=== PATIENT | male | born 1945 | race Caucasian/White ===

== ENCOUNTER 2017-11-15 07:41 | Inpatient (IN) ==
[2017-11-15] MEDS ORDERED: Ketorolac 15 MG/ML VIAL IVP ONE (07:59)
[2017-11-15] MEDS ORDERED: CeFAZolin Syr 3,000MG/30 ML 3,000 MG/30 ML SYRINGE IVPB ONE (07:59)
--- NOTE | 2017-11-15 08:36 | History & Physical Report ---
Date of Encounter: 11/15/17 Time of Encounter: 08:36 24 Hour HP Update - Instructions Instructions: If the History and Physical is less than 30 days old and was completed prior to A.M. admission and or procedure and has NOT been updated on calendar day of procedure please complete this update prior to performing procedure. - Update Patient reports changes in Medical Condition: No Changes in examination, assessment, or condition: No Changes in Medication: No Preop tests/diagnostics Reviewed: Yes Surgery Remains Indicated: Yes Consent for Planned Operative Procedure(s) Verified: Yes
--- NOTE | 2017-11-15 08:36 | Anesthesia Evaluation PreOp ---
Date of Encounter: 11/15/17 Time of Encounter: 08:35 - Past History Planned Operation: R total reverse shoulder Cardiac History: HTN (Borderline HTN, on no therapy) Pulmonary History: Former smoker (Quit 5 years ago.), [employer] History: Denies Any Significant HX Other Medical History: Denies Any Significant HX, Other (obese) Anesthesia History: No Prior Anesthetic Complications (Has not had a GA in over 30 years, if ever.) Alcohol Use: rarely Drug use: none Medications and Allergies 3 Allergy/AdvReac Type Severity Reaction Status Date / Time No Known Allergies Allergy Verified 09/13/15 13:14 - Meds/Allergy Pre-op Review Medications Reviewed: Yes Allergies Reviewed: Yes Beta Blockers on Current Med List: No Anesthesia Results - Imaging EKG: report reviewed (sinus rhythm, occ. PACs) Anesthesia Exam Selected Entries 11/15/17 08:05 Temperature 98.1 F Pulse Rate 79 Respiratory Rate 18 Blood Pressure 167/96 O2 Sat by Pulse Oximetry 97 Weight: 130 kg. BMI 35 NPO (# of Hours): over 8 hours - HEENT Pupil (Motor): Pupils equal Mallampati: II Teeth: Normal, Missing Denture Type: Upper: Partial Oral Opening: Greater than 3 - Cardiac Rhythm: Regular Murmur: None - Pulmonary Breath Sounds: bilateral Clear Respiratory Effort: Symmetrical Anesthesia Assess/Plan ASA Score: 2 Modified [place] Scale for Level of Consciousness: Cooperative, oriented, and tranquil Anesthetic Plan: General Monitoring Plan: Standard Monitors Recovery Plan: PACU (Discussed GA and nerve block and associated risks. Agreed to proceed.)
[2017-11-15] MEDS ORDERED: ROPIVACAINE HCL/PF 0.5% 30 ML VIAL ONE (08:57)
[2017-11-15] MEDS: Ringers Solution, Lactated 1,000 ML IVC SCH ×2 (09:12→11:39)
--- NOTE | 2017-11-15 09:44 | Anesthesia Procedures ---
Date of Encounter: 11/15/17 Time of Encounter: 09:42 Procedures: Anesthesia - Nerve Block Procedure Date: 11/15/17 Time: 09:42 Allergies/Adv Reactions: [email or web address] Pre-op Diagnosis: Rt shoulder arthritis Surgical Procedure: Rt total shoulder Checklist: Correct Patient Identifier Correct side: Right Blood Thinner: No Monitor Applied: EKG, BP, Pulse Oximetry Supplemental Oxygen via Nasal Cannula (L/min): 3 Sedation: Versed (mg): 2 Sedation: Fentanyl (mcg): 100 Indication: Post Op Analgesia Pre-op Neuro Deficits: No Block Type: Supraclavicular Catheter placed: No Sterile Technique: Yes Ultrasound used: Yes Anatomy identified: Yes Visual spread of Local: Yes Neuro Stimulation: Yes Nerve Stimulator Range: 0.2 - 0.4 mA Blood on Needle Aspiration: No Smooth Injection of Local: Yes Pain with Injection of Local: No Prep: Chlorhexadine Needle: 22 x 50 mm Stimuplex Local: Ropivacaine (0.2) Volume (cc): 30 Number of Attempts: 1 Complications: None/effective block Vitals: Vital Signs/O2 Sat, Most Current Temp Pulse Resp BP Pulse Ox 98.1 F 67 16 183/99 97 11/15/17 08:05 11/15/17 09:32 11/15/17 09:32 11/15/17 09:32 11/15/17 09:32 Comments: aseptic tech, tolerated well, effective
[2017-11-15] MEDS ORDERED: EPHEDrine 50 MG/ML VIAL ONE (10:55)
[2017-11-15] MEDS ORDERED: *HR* Propofol 200 MG/20 ML VIAL IVP ONE ×2 (10:55→12:36)
[2017-11-15] MEDS ORDERED: *HR* FentaNYL (PF) 100 MCG/2 ML VIAL ONE ×2 (10:55)
[2017-11-15] MEDS ORDERED: Lidocaine -MPF 2% 2 ML VIAL ONE (10:55)
[2017-11-15] MEDS ORDERED: Lidocaine -MPF 4% 5 ML AMPUL ONE (10:55)
[2017-11-15] MEDS ORDERED: *HR* Midazolam HCl 2 MG/2 ML VIAL ONE (10:55)
[2017-11-15] MEDS ORDERED: *HR* Succinylcholine 200 MG/10 ML VIAL IVP ONE (10:55)
[2017-11-15] MEDS ORDERED: Ondansetron 4 MG/2 ML VIAL ONE (10:55)
[2017-11-15] MEDS ORDERED: *HR* Rocuronium Bromide 50 MG/5 ML VIAL ONE (10:55)
[2017-11-15] MEDS ORDERED: Dexamethasone 4 MG/ML VIAL ONE ×2 (10:55→12:03)
[2017-11-15] MEDS ORDERED: *HR* Labetalol 20 MG/4 ML SYRINGE IVP PRN (11:02)
[2017-11-15] MEDS ORDERED: *HR* Promethazine 25 MG/ML VIAL IVP PRN (11:02)
[2017-11-15] MEDS ORDERED: Ondansetron 4 MG/2 ML VIAL IVP ONE (11:02)
[2017-11-15] MEDS ORDERED: *HR* HYDROmorphone (PF) 1 MG/ML SYRINGE IVP PRN (11:02)
[2017-11-15] MEDS ORDERED: Neostigmine Methylsulfate 3 MG/3 ML SYRINGE ONE (11:44)
[2017-11-15] MEDS ORDERED: Tranexamic Acid 1,000 MG/10 ML VIAL ONE (12:02)
--- NOTE | 2017-11-15 14:11 | Anesthesia Evaluation Post Op ---
Date of Encounter: 11/15/17 Time of Encounter: 14:00 - Vital Signs Vital Signs: Vital Signs/O2 Sat/Glucose, Most Current Temp Pulse Resp BP Pulse Ox 11/15/17 13:54 98 F 68 14 136/91 97 11/15/17 13:44 98 F 75 14 139/83 96 11/15/17 13:34 82 14 139/82 97 11/15/17 13:24 80 16 155/87 96 11/15/17 13:14 98 F 81 14 148/88 95 11/15/17 13:04 84 16 155/88 93 11/15/17 12:54 86 16 149/98 94 11/15/17 12:44 97.2 F L 92 18 134/82 95 - Lungs Lungs: Clear Ascult./Percussion - Airway Airway: Non-obstructed - Cardiovascular Regular Rate - Mental Status Mental Status: Alert & Oriented, Answers Appropriately - Pain Pain Scale: 0 - Nausea Vomiting Nausea Vomiting: Not Present - Hydration Hydration: Tolerates oral liquids - Discharge PostOp Status: Transfer Patient to floor
[2017-11-15] MEDS ORDERED: Sennosides 8.6 MG TABLET PO PRN (14:15)
[2017-11-15] MEDS ORDERED: *HR* Morphine 2 MG/ML SYRINGE IVP PRN (14:15)
[2017-11-15] MEDS ORDERED: *HR* OxyCODONE Immed Rel 5 MG TABLET PO PRN (14:15)
[2017-11-15] MEDS ORDERED: *HR* HYDROcodone/Acet 5/325 mg TABLET PO PRN (14:15)
[2017-11-15] MEDS ORDERED: Acetaminophen 325 MG TABLET PO PRN (14:15)
[2017-11-15] MEDS ORDERED: Ondansetron 4 MG/2 ML VIAL IVP PRN (14:15)
[2017-11-15] MEDS ORDERED: MOM Conc 10 ML UD.LIQ PO PRN (14:15)
[2017-11-15] MEDS ORDERED: Ketorolac 15 MG/ML VIAL IVP PRN (14:15)
[2017-11-15] MEDS ORDERED: Temazepam 15 MG CAPSULE PO PRN (14:15)
[2017-11-15] MEDS ORDERED: Naloxone 0.4 MG/ML INJ IVP PRN (14:15)
[2017-11-15] MEDS ORDERED: Ringers Solution, Lactated 1,000 ML IVC SCH (14:15)
--- NOTE | 2017-11-15 15:36 | Discharge Summary ---
Outpatient Proc Discharge Plan - Plan Home Medications: Ascorbate Calcium [Vitamin C] 500 mg PO DAILY 11/15/17 [History] Iron Bis-Gly/FA/C/B12/Ca/Succ [Iron 17/05 Tablet] 1 tab PO DAILY 11/15/17 [ History] Secukinumab [Cosentyx Pen] 300 mg SQ QMONTH 11/15/17 [History]
--- NOTE | 2017-11-15 15:38 | Orthopedic Operative Note ---
Date of procedure: 11/15/17 Pre-op diagnosis: R cuff tear arthropathy Post-op diagnosis: same Procedure: 1. Right reverse total shoulder arthroplasty 2. Right open biceps tenodesis Indications: This is a 71-year-old male who has a several month history of right shoulder pain with arthritis and cuff tear arthropathy confirmed on radiographs. The patient has been unable to actively elevate his arm above approximately 50 degrees for months. The patient has failed conservative treatment including anti-inflammatories therapy and therapy. The patient has elected for a right reverse shoulder replacement. The risks and benefits of the procedure were fully explained to the patient. These risks include, but are not limited to, the risk of infection, neurovascular injury, continued pain and stiffness of the shoulder, need for further surgery, DVT, PE, loss of limb and loss of life. The patient did understand all of these risks and wishes to proceed. Informed consent was then obtained. Operative procedure: The patient was brought back to the OR suite by the anesthesia staff. The patient was then placed supine on the operating table and all bony prominences were padded. The anesthesiologist then performed successful general anesthetic for the remainder of the case. The head, neck and airway were secured and protected by anesthesia. The bed was elevated about 30 degrees. The right upper extremity was then prepped and draped in the normal sterile orthopedic fashion and placed in the Trimano arm collazo. Preoperative antibiotics were then given prior to incision. A timeout was performed confirming the correct patient, site and side, procedure to be performed and any allergies. All were in agree and we did proceed. A standard deltopectoral approach was performed. We dissected down through the skin coagulating any bleeders were encountered. The cephalic vein was then identified and taken laterally with the deltoid. Adhesions were cleared from underneath the deltoid and a brown retractor was placed. The interval between the deltoid and pectoralis was then developed and kolbel retractor was placed. A Darrach retractor was then placed under the acromion. The biceps tendon was exposed and identified, and then released proximally. Soft tissue tenodesis of the remaining biceps was then performed. The lateral border of the conjoined tendon was then identified and a subscapularis release was performed. The subscapularis was tagged and was released from the rotator interval down the anterior aspect of the humerus. The capsule was then released from the anterior aspect of the humerus around inferiorly to the back of the humerus. The humerus was subluxed anteriorly and any osteophytes were removed. The supraspinatus was not intact. A humeral osteotomy was then performed, and the humerus was sounded and broached to the appropriate size. Attention was then turned to the glenoid. The humerus was subluxed posteriorly and retractors were placed on the anterior and posterior aspects of the glenoid. A 360 degree release of the subscapularis was performed, and the axillary nerve was palpated and protected throughout the case. Labral debridement was then performed. A central guide pin was placed in the appropriate position on the glenoid. Central drill hole was drilled and the glenoid was then reamed in accordance with the aequalis reverse shoulder system. The glenoid baseplate was screwed in place and 2 peripheral drill holes were drilled and filled with the appropriate length screws 2 locking. The final glenosphere was then impacted and the glenoid sphere screw was tightened in place. Attention was turned back to the humerus. The humerus was subluxed back anteriorly and a trial humeral stem, tray and poly trials were placed. Trial humeral reverse trays and poly were then placed sequentially until the most appropriate size was identified. The trial size +0 tray, +6mm poly was tested and had excellent range of motion, and stability was verified. The final component was assembled on the back table and then inserted, and the shoulder was reduced. Again the shoulder was taken through range of motion and there was excellent range of motion and stability. The wound was then copiously irrigated. The deltopectoral interval was tagged with 2-0 surgilon, and the incision was closed with 2-0 stratafix deep and a running 3-0 stratafix subcuticular. Sterile dressing was placed, the arm was placed in a sling and the patient was taken to the PACU in stable condition. There were no complications during the case. Post op plan: The patient will go into the reverse shoulder protocol. Implants: Tornier aequalis with flex 8B PTC stem 25 x 35 mm threaded post baseplate 39 x 25 mm +2 eccentric glenosphere Flex low offset +0 tray, 39+6 mm poly- Complications: none Anesthesia: GETA, regional Surgeon: Joe Guevara Was there an housing assistant present: No Estimated blood loss (cc): 250 Condition: stable Disposition: PACU
[2017-11-15] MEDS ORDERED: CeFAZolin Premix DUPLEX 2,000 MG/50 ML BAG IVPB SCH (16:00)
[2017-11-15 16:10] VITALS: BP 124/80
--- NOTE | 2017-11-22 17:38 | Discharge Summary ---
Date of Encounter: 11/22/17 Time of Encounter: 17:36 - Discharge Diagnosis (1) Status post reverse total replacement of right shoulder Priority: Primary Status: Acute - Discharge Medications Home Medications: Ascorbate Calcium [Vitamin C] 500 mg PO DAILY 11/15/17 [History] Iron Bis-Gly/FA/C/B12/Ca/Succ [Iron 21/7 Tablet] 1 tab PO DAILY 11/15/17 [ History] Secukinumab [Cosentyx Pen] 300 mg SQ QMONTH 11/15/17 [History] Allergies/Adverse Reactions: 3 Allergy/AdvReac Type Severity Reaction Status Date / Time etanercept [From Enbrel] AdvReac See Verified 11/15/17 08:51 Comments - Impressions ITS Impressions Shoulder X-Ray 11/15/17 00:00 IMPRESSION: No acute complication status post right shoulder arthroplasty. D/ / 11/15/2017 16:00:35 Andrew Salinas MD / frida Interpreting Provider: Andrew Salinas MD Date of admission: 11/15/17 14:15 Primary care physician: Jeff Houser Consults: 11/15/17 14:15 Consult to Occupational Therapy [CONS] Routine Comment: post shoulder surgery Reason for Consult: post shoulder surgery Consult to Orthopedic Navigator [CONS] [CONS] Routine Consult to Physical Therapy [CONS] Routine Comment: post shoulder surgery Reason for Consult: post shoulder surgery RT Post Op Consult [CONS] Routine - Patient Status Disposition: Home, Self-Care Condition: Good Functional capacity at discharge: independent ambulation Overall status at discharge: patient is progressing back to baseline - Discharge Instructions Follow Up With: Jeff Houser [Primary Care Provider] - Joe Guevara MD [Non-Partnered Physician] - 11/25/17 9:45 am Additional Instructions: Discharge Instructions: Total Shoulder Please call [facility] ([phone]), your Primary Care Physician, or report to the Emergency Room if you have any of the following symptoms: Nausea, vomiting, fever greater that 101.5, swelling, chest pain, shortness of breath, increased pain/redness/drainage/odor for your incision site, numbness/ tingling, or any other concerning symptoms. ACTIVITY: Always keep your arm in the sling. Do not raise your arm away from your body. Do not use your arm to help with getting in or out of bed. No weight bearing permitted. Only perform those exercises given to you by your therapist. MEDICATIONS: Upon discharge resume your home medications. Take all the medications as prescribed. Take a stool softener if taking narcotic pain medications. Stool softeners are only effective if you drink enough fluids. Drink 6-8 glass of water or fluids a day, unless this is not allowed for another health problem. Despite using stool softeners, if you haven't had a bowel movement in 3 days, please switch to a gentle laxative. Gentle laxatives are sold over the counter. You should have a bowel movement within 24 hours, if not call the office. You will be discharged from the hospital with a prescription for pain medication. You are encouraged to decrease the use of narcotic pain medication as tolerated. Should you require a refill, please call the office. [facility] prescribes narcotic pain medication for only 4-6 weeks after surgery. If you require pain medication beyond this time period, you may be referred to your Primary Care Physician or to the Pain Clinic for further evaluation. Plan ahead for refills on pain medication as many narcotics either need to be picked up at the office or mailed. It is best to call 48-72 hours in advance of needing a prescription refill so you don't run out of medication. To help control the post-operative pain, you may take NSAIDs (Aleve,Advil, Motrin, Ibuprofen, Naprosyn) or Tylenol as prescribed on the bottle in addition to the pain medication. WOUND CARE: Leave the dressing on for 7-10 days. You may change the dressing if it becomes saturated greater than 50%. Do not get the dressing wet at anytime. Wash your hands with antibacterial soap, rinse and dry prior to any wound care. If you have prashant the visiting nurse or rehab facility can remove the stapes 10-14 days after surgery and place steri-strips across the wound. Leave the steri-strips in place until they fall off on their own. You may let water from the shower run on top of the steri-strips. If you do not have a visiting nurse or rehab facility, you will need to return to the office at 10-14 days for the prashant to be removed. If you have itching or redness around the dressing call the office. FOLLOW-UP: Please follow up with your surgeon in the orthopedic clinic, as scheduled - Hospital Course Hospital course: Mr. Nino is a 72 year old male who underwent a right reverse total shoulder. He tolerated the procedure well. He was admitted to the floor afterwards for PT and pain control. Discharged in stable condition. - Time Spent with Patient Total time spent providing and/or coordinating discharge services: - VTE Documentation of Mechanical Device: Intermittent pneumatic compression device
== END 2017-11-15 19:15 | disposition home or self-care (01) | DRG 483 ==
LOC: SAMDAY 07:41 → 3NENU 14:15
PROVIDERS: ADMIT Orthopaedic Surgery Sports Medicine; ATTEND Orthopaedic Surgery Sports Medicine